=== PATIENT | female | born 1955 | race Caucasian/White ===

== ENCOUNTER 2023-01-07 08:50 | Inpatient (IN) | payer MEDICARE, BC ==
[~2023-01-07] VITALS: Ht 172.7 cm; Wt 86.2 kg
[2023-01-07] MEDS ORDERED: MIDAZOLAM HCL 2 MG/2ML VIAL ONE (10:34)
[2023-01-07] MEDS ORDERED: ROCURONIUM BROMIDE 50 MG/5 ML ONE (10:34)
[2023-01-07] MEDS ORDERED: FENTANYL PF 100MCG/2ML AMPUL ONE (10:34)
[2023-01-07] MEDS ORDERED: GLYCOPYRROLATE 0.2 MG/ML VIAL ONE (10:35)
[2023-01-07] MEDS ORDERED: VANCOMYCIN 1 GM VIAL ONE (10:37)
[2023-01-07] MEDS ORDERED: LIDOCAINE 2%-EPI 1:100,000 30 ML VIAL ONE (10:37)
[2023-01-07] MEDS ORDERED: OXYMETAZOLINE HCL NASAL SPRAY 30 ML BOTTLE NS ONE (10:38)
[2023-01-07] MEDS ORDERED: HYDROMORPHONE 1 MG/1 ML DISP.SYRIN ONE (13:44)
[2023-01-07] MEDS ORDERED: LABETALOL HCL IV 100MG VIAL ONE (14:05)
[2023-01-07 14:46] VITALS: BP 156/67; TEMP 97.7; O2SAT 98
[2023-01-07] MEDS ORDERED: ALLO100T PO (14:53)
[2023-01-07] MEDS ORDERED: ROSU10TA2 PO (14:53)
[2023-01-07] MEDS ORDERED: OLME40TA12 PO (14:53)
[2023-01-07] MEDS ORDERED: IV NS 0.9% 1,000 ML IV PRN (15:00)
[2023-01-07] MEDS ORDERED: ONDANSETRON HCL/PF 4 MG/2 ML VIAL IV PRN (15:00)
[2023-01-07] MEDS ORDERED: HYDROMORPHONE 1 MG/1 ML DISP.SYRIN IV PRN (15:00)
[2023-01-07 16:08] VITALS: BP 152/71; TEMP 98; O2SAT 94
[2023-01-07] MEDS ORDERED: LOSARTAN POTASSIUM 50 MG TABLET PO SCH (18:00)
[2023-01-07 20:00] VITALS: BP 138/71; TEMP 98.6; O2SAT 94
[2023-01-07 20:29] VITALS: BP 138/71; TEMP 98.6; O2SAT 94
[2023-01-07] MEDS: ACETAMINOPHEN 325 MG TABLET PO PRN (21:28)
[2023-01-07] MEDS: VANCOMYCIN 1 GM in IV D5W 250ml IV SCH (22:08)
[2023-01-08 06:11] LABS: BASOPHILS % (AUTO) 0.2 % (0.0-2.0); HEMATOCRIT 39 % (33-45); HEMOGLOBIN 12.7 g/dL (11.5-14.8); LYMPHOCYTES # (AUTO) 1.1 K/uL (0.8-4.8); LYMPHOCYTES % (AUTO) 7.2 % (20.0-44.0); MEAN CORPUSCULAR HEMOGLOBIN 30 PG (26.0-33.0); MEAN CORPUSCULAR HGB CONC 33 g/dl (31.0-36.0); MEAN CORPUSCULAR VOLUME 91 fL (82-100); MONOCYTES # (AUTO) 0.7 K/uL (0.1-1.30); MONOCYTES % (AUTO) 4.2 % (2.0-12.0); NEUTROPHILS # (AUTO) 13.9 K/uL (1.8-8.9); NEUTROPHILS % (AUTO) 88.4 % (43.0-81.0); PLATELET COUNT (AUTO) 340 K/uL (150-450); RED BLOOD CELL COUNT(AUTO) 4.29 MIL/uL (4.0-5.2); RED CELL DISTRIBUTION WIDTH 13.7 % (11.5-15.0); WHITE BLOOD COUNT (AUTO) 15.7 K/uL (4.3-11.0)
[2023-01-08 06:49] LABS: CALCIUM, SERUM 8.8 mg/dL (8.5-10.1); CREATININE 0.8 mg/dL (0.6-1.3); MAGNESIUM 2.3 mg/dL (1.8-2.4); PHOSPHORUS 3.8 mg/dL (2.5-4.9); POTASSIUM 4.4 mmol/L (3.5-5.1)
[2023-01-08] MEDS ORDERED: PANTOPRAZOLE 40 MG TABLET.DR PO SCH (07:30)
[2023-01-08] MEDS: ACETAMINOPHEN 325 MG TABLET PO PRN (07:57)
[2023-01-08 08:00] VITALS: BP 145/75; TEMP 97.9; O2SAT 96
[2023-01-08] MEDS ORDERED: ATORVASTATIN 40 MG TABLET PO SCH (09:00)
[2023-01-08] MEDS ORDERED: ALLOPURINOL 100 MG TABLET PO SCH (09:00)
[2023-01-08] MEDS: VANCOMYCIN 1 GM in IV D5W 250ml IV SCH (10:34)
== END 2023-01-08 12:45 | disposition home or self-care (01) | DRG 496 ==
LOC: DS 08:50 → MED 10:38
PROVIDERS: ADMIT Nurse Practitioner Family; ATTEND Nurse Practitioner Family
PROC: 0NPW04Z Removal of Internal Fixation Device from Facial Bone, Open Approach (ICD-10-PCS; principal; 2023-01-07)
PROC: 0NST0ZZ Reposition Right Mandible, Open Approach (ICD-10-PCS; 2023-01-07)
PROC: 0NUT07Z Supplement Right Mandible with Autologous Tissue Substitute, Open Approach (ICD-10-PCS; 2023-01-07)
PROC: 0NPW0JZ Removal of Synthetic Substitute from Facial Bone, Open Approach (ICD-10-PCS; 2023-01-07)
PROC: 0WB30ZZ Excision of Oral Cavity and Throat, Open Approach (ICD-10-PCS; 2023-01-07)
PROC: 0NBT0ZX Excision of Right Mandible, Open Approach, Diagnostic (ICD-10-PCS; 2023-01-07)
DX: T84.69XA Infection and inflammatory reaction due to internal fixation device of other site, initial encounter (principal); M84.48XK Pathological fracture, other site, subsequent encounter for fracture with nonunion; M27.2 Inflammatory conditions of jaws; I10 Essential (primary) hypertension; X58.XXXD Exposure to other specified factors, subsequent encounter; D16.4 Benign neoplasm of bones of skull and face; K13.79 Other lesions of oral mucosa; Y83.8 Other surgical procedures as the cause of abnormal reaction of the patient, or of later complication, without mention of misadventure at the time of the procedure; T84.7XXA Infection and inflammatory reaction due to other internal orthopedic prosthetic devices, implants and grafts, initial encounter; E78.5 Hyperlipidemia, unspecified; Y92.009 Unspecified place in unspecified non-institutional (private) residence as the place of occurrence of the external cause
CPT/HCPCS: 36415; 80048-TC; 80061-TC; 83735-TC; 84100-TC; 85025-TC; A4223; C1713; G0378; J1170; J1885; J2250; J2704; J3010; J3370; J3490; J7030; J7050; J7060

== ENCOUNTER 2023-05-21 08:35 | Inpatient (IN) | payer MEDICARE, BC ==
[~2023-05-21] VITALS: Ht 172.7 cm; Wt 86.2 kg
[~2023-05-21 08:35] MED LIST: ALLO100T PO; OLME40TA12 PO; ROSU10TA2 PO
[2023-05-21] MEDS ORDERED: IV LR 1000 ML 1,000 ML IV PRN (12:00)
[2023-05-21] MEDS ORDERED: KETAMINE HCL (500MG/10ML) 50 MG/ML VIAL ONE (13:15)
[2023-05-21] MEDS ORDERED: FENTANYL PF 100MCG/2ML AMPUL ONE (13:15)
[2023-05-21] MEDS ORDERED: ROCURONIUM BROMIDE 50 MG/5 ML ONE (13:16)
[2023-05-21] MEDS ORDERED: FAMOTIDINE/PF INJ 20 MG/2 ML VIAL IV ONE (13:16)
[2023-05-21] MEDS ORDERED: dexaMETHasone SOD PHOSPHATE 2 ML ONE (13:18)
[2023-05-21] MEDS ORDERED: LIDOCAINE 2%-EPI 1:100,000 30 ML VIAL ONE (13:18)
[2023-05-21] MEDS ORDERED: VANCOMYCIN 1 GM VIAL ONE (13:18)
[2023-05-21] MEDS ORDERED: OXYMETAZOLINE HCL NASAL SPRAY 30 ML BOTTLE NS ONE (13:22)
[2023-05-21] MEDS ORDERED: LIDOCAINE 1% INJ 50 ML MDV IJ ONE (14:29)
[2023-05-21] MEDS ORDERED: MEPERIDINE25 MG SYR 25 MG/ML VIAL ONE (15:04)
[2023-05-21] MEDS ORDERED: HYDROMORPHONE INJ 2 MG/ML DISP.SYRIN IV PRN (15:30)
[2023-05-21] MEDS ORDERED: ACETAMINOPHEN 325 MG TABLET PO PRN ×2 (15:30→18:30)
[2023-05-21] MEDS ORDERED: ONDANSETRON HCL/PF 4 MG/2 ML VIAL IV PRN (15:30)
[2023-05-21] MEDS ORDERED: IV NS 0.9% 1,000 ML IV PRN (15:30)
[2023-05-21 16:00] VITALS: BP 170/82; TEMP 97.5; O2SAT 95
[2023-05-21] MEDS ORDERED: Z GUARD REMEDY 4 OZ OINT TP PRN (18:30)
[2023-05-21] MEDS ORDERED: MAG HYDROX/AL HYDROX/SIMETH 30 ML UDC PO PRN (18:30)
[2023-05-21] MEDS ORDERED: ONDANSETRON HCL/PF 4 MG/2 ML VIAL IVP PRN (18:30)
[2023-05-21] MEDS ORDERED: MAGNESIUM HYDROXIDE 30 ML UDC PO PRN (18:30)
[2023-05-21 18:50] VITALS: BP 119/58
[2023-05-21] MEDS: LOSARTAN POTASSIUM 50 MG TABLET PO SCH (18:50)
[2023-05-22] MEDS ORDERED: ALLOPURINOL 100 MG TABLET PO SCH (09:00)
== END 2023-05-21 19:00 | disposition left against medical advice (07) | DRG 908 ==
LOC: DS 08:35 → MED 16:35
PROVIDERS: ADMIT Internal Medicine; ATTEND Internal Medicine
PROC: 0NBT0ZZ Excision of Right Mandible, Open Approach (ICD-10-PCS; principal; 2023-05-21)
PROC: 0KB10ZZ Excision of Facial Muscle, Open Approach (ICD-10-PCS; 2023-05-21)
PROC: 0NHT04Z Insertion of Internal Fixation Device into Right Mandible, Open Approach (ICD-10-PCS; 2023-05-21)
DX: T86.831 Bone graft failure (principal); S02.69XK Fracture of mandible of other specified site, subsequent encounter for fracture with nonunion; I10 Essential (primary) hypertension; M10.9 Gout, unspecified; M60.9 Myositis, unspecified; Y83.2 Surgical operation with anastomosis, bypass or graft as the cause of abnormal reaction of the patient, or of later complication, without mention of misadventure at the time of the procedure; X58.XXXD Exposure to other specified factors, subsequent encounter; Y92.009 Unspecified place in unspecified non-institutional (private) residence as the place of occurrence of the external cause
CPT/HCPCS: G0378; J0330; J1100; J1170; J2175; J2405; J2704; J3010; J3370; J3490; J7030; J7120